=== PATIENT | female | born 1955 | race African-American/Black ===

== ENCOUNTER → 2019-03-23 | Outpatient (CLI) | payer OTHER ==
--- NOTE | 2019-03-23 15:43 | KCIC ---
EXAM: Left wrist, 3 views. HISTORY: Pain and swelling status post fall. COMPARISON: None. FINDINGS: 3 views of the left wrist are obtained. There is a minimally displaced intra-articular fracture of the distal radial metaphysis. There are suspected degenerative subchondral cysts within the distal scaphoid and capitate. There is a chronic corticated ossicle at the base of the first metacarpal, likely due to a chronic fragmented osteophyte or chronic nonunited fracture fragment. There is wrist soft tissue swelling. IMPRESSION: Minimally displaced intra-articular fracture of the distal radial metaphysis. Electronically signed by: Michela Moreno MD (03/23/2019 3:40 PM) [facility]
== END | disposition home or self-care (01) ==
LOC: KCIC 15:02
PROVIDERS: ATTEND Family Medicine
DX: S52.572A Other intraarticular fracture of lower end of left radius, initial encounter for closed fracture (principal); W19.XXXA Unspecified fall, initial encounter; Y93.89 Activity, other specified; Y92.89 Other specified places as the place of occurrence of the external cause; Y99.8 Other external cause status
CPT/HCPCS: 73110

== ENCOUNTER → 2020-07-11 | Outpatient (CLI) | payer BC, OTHER ==
--- NOTE | 2020-07-11 16:28 | KCIC ---
EXAM: Bilateral knees, standing view; right knee, 3 views. HISTORY: Pain. COMPARISON: None. FINDINGS: A standing view both knees and 3 views of the right knee are obtained. There is no fracture , dislocation or subluxation. There is minimal right knee tricompartmental spurring and right knee ge nu valgus. There is enthesopathy along the superior right patella. There is no joint effusion. IMPRESSION: 1. Mild tricompartmental osteoarthritis of the right knee with slight genu valgus. 2. No acute osseous finding. Electronically signed by: Michela Moreno MD (07/11/2020 4:25 PM) [email or web address]
--- NOTE | 2020-07-11 17:27 | KCIC ---
Sacrum and coccyx 3 views: Reason for examination: Lumbar spine and coccygeal pain. There appears to be angulation at the sacrococcygeal junction possibly related to previous trauma. An acute site of fracture is not seen. There is mild subluxation of the second coccygeal vertebral body on the third. The sacrum appears be normally aligned with no evidence of fracture. Sacroiliac joints are maintained. IMPRESSION: Changes probably related to previous trauma at the coccyx. No acute bony abnormality seen. Lumbar spine 5 views: The vertebral bodies of the lumbar spine are normally aligned anteriorly and posteriorly. No acute fr acture or subluxation is seen. Posterior elements appear to be intact. There is some mild narrowing a t the L4-5 and L5-S1 disc spaces. Remaining intervertebral discs however appear to be maintained. Inc idental note is made of some arteriosclerotic vascular calcification. IMPRESSION: Mild narrowing at the L4-5 and L5-S1 disc spaces. Electronically signed by: Sheryl Ann MD (07/11/2020 5:25 PM) [facility]
== END ==
LOC: KCIC 14:23
PROVIDERS: ATTEND Family Medicine
DX: M17.11 Unilateral primary osteoarthritis, right knee (principal); M53.3 Sacrococcygeal disorders, not elsewhere classified; M25.561 Pain in right knee; M54.5 Low back pain; M48.07 Spinal stenosis, lumbosacral region
CPT/HCPCS: 72110; 72220; 73562; 73565

== ENCOUNTER → 2021-01-09 | Outpatient (CLI) | payer BC ==
--- NOTE | 2021-01-09 12:17 | KCIC ---
Bilateral digital screening mammograms: Reason for examination: Routine screening. Comparison is made to previous studies dated 02/07/2016 and 05/06/2014. Interpretation was made with the benefit of CAD. The skin and nipples show no abnormalities. No abnormal axillary lymph nodes are seen. The breast par enchyma is heterogeneously dense. (Breast density: Category C.) There appears to be interval developm ent of a small focus of nodular architectural distortion at the 9:00 B position of the right breast a pproximately 5.5 cm posterior to the nipple. Further evaluation with coned compression views and ultr asound is recommended. There are no other dominant masses, suspicious calcifications or architectural distortion. Impression: Small focus of nodular architectural distortion at the 9:00 B position of the right breast 5.5 cm fro m the nipple. Recommend further evaluation with coned compression views and ultrasound. Your patient's mammogram demonstrates that she has dense breast tissue (breast density category C or D), which could hide abnormalities, and if she has other risk factors for breast cancer that have bee n identified, she might benefit from supplemental screening tests that may be suggested by you as her ordering physician. Dense breast tissue, in and of itself, is a relatively common condition. Therefo re, this information is not provided to cause undue concern, but rather to raise your awareness and t o promote discussion with your patient regarding the presence of other risk factors, in addition to d ense breast tissue. Your patient's mammography results will be sent to her. BI-RAD Category 0: Incomplete. Needs additional imaging evaluation. "Our facility is accredited by the [employer] Mammography [employer]." This patient's information has been entered into a reminder system for the patient to be notified wit h the results of her examination and a target date for the next mammogram. Electronically signed by: Sheryl Ann MD (01/09/2021 12:14 PM) [email or web address]
== END ==
LOC: KCIC MAMMO 10:03
PROVIDERS: ATTEND Family Medicine
DX: Z12.31 Encounter for screening mammogram for malignant neoplasm of breast (principal); N63.41 Unspecified lump in right breast, subareolar
CPT/HCPCS: 77067

== ENCOUNTER → 2021-02-01 | Outpatient (CLI) | payer BC ==
--- NOTE | 2021-02-01 13:17 | KCIC ---
Procedure: Diagnostic right mammogram and targeted right breast ultrasound INDICATION: Abnormal mammogram with small focus of nodular architectural distortion in the 9:00 B pos ition the right breast, 5.5 cm from the nipple. COMPARISON: Mammograms from 01/09/2021, 02/07/2016, and 05/06/2014. FINDINGS MAMMOGRAM: Breast density: Category C. There is heterogeneously dense fibroglandular tissue, which may obscure s mall masses. 2-D spot compression views show no discrete breast mass or architectural distortion in the area of co ncern. There is dense fibroglandular tissue in this location. FINDINGS TARGETED/LIMITED RIGHT BREAST ULTRASOUND: The in the outer right breast was imaged from the 8:00 to 11:00 position. The axilla was evaluated. No suspicious breast mass is seen. There is heterogeneously fibroglandular tissue in this location. T here is 5 mm cyst at 9:00, 6 cm from the nipple. There is no axillary adenopathy. IMPRESSION: No suspicious breast mass is seen in the area of concern on recent screening mammogram. T he area of interest appears to be due to summation artifact. There is a 5 mm cyst in the 9:00 positio n, 6 cm from the nipple. ASSESSMENT: BI-RADS 2. Benign findings. RECOMMENDATIONS: Routine screening 3-D mammograms. Results were given to the patient at time of examination. This patient's information has been entered into a reminder system for the patient to be notified with the results of her examination by mail an d a target date for the next mammogram. Electronically signed by: Beulah Hernandez MD (02/01/2021 1:15 PM) [email or web address]
== END ==
LOC: KCIC MAMMO 10:05
PROVIDERS: ATTEND Family Medicine
DX: N60.01 Solitary cyst of right breast (principal); R92.8 Other abnormal and inconclusive findings on diagnostic imaging of breast
CPT/HCPCS: 76641; 77065